=== PATIENT | male | born 1955 | race Asian ===

== ENCOUNTER 2016-08-12 22:47 | Emergency (ER) | payer OTHER ==
[~2016-08-12] VITALS: Ht 185.4 cm; Wt 95.3 kg
[2016-08-12 23:27] VITALS: BP 163/92; TEMP 98.7
== END 2016-08-12 23:34 | disposition home or self-care (01) ==
LOC: ED 22:47
DX: L03.012 Cellulitis of left finger (principal); W26.0XXA Contact with knife, initial encounter; Y92.098 Other place in other non-institutional residence as the place of occurrence of the external cause
CPT/HCPCS: 96372; 99282; J0696

== ENCOUNTER 2016-08-28 10:22 | Outpatient (CLI) | payer OTHER | END 2016-08-28 11:30 | disposition home or self-care (01) | LOC: RAD 10:22 | DX: L03.012 Cellulitis of left finger (principal) ==

== ENCOUNTER 2016-09-03 16:30 | Inpatient (IN) | payer OTHER ==
[~2016-09-03] VITALS: Ht 190.5 cm; Wt 82.6 kg
[2016-09-03 18:21] VITALS: BP 180/96; TEMP 98.1; Ht 190.5 cm; Wt 82.6 kg
[2016-09-03 19:32] LABS: PLATELET COUNT 312 K/uL (142-355)
[2016-09-03 19:40] LABS: POTASSIUM 3.7 mmol/L (3.6-5.2); SODIUM 136 mmol/L (136-145)
[2016-09-03 20:00] VITALS: BP 175/99; TEMP 98.1
[2016-09-04] VITALS (8 sets, daily range): BP systolic 119–172; BP diastolic 78–108; TEMP 97.6–98.4
[2016-09-04 05:20] LABS: PLATELET COUNT 256 K/uL (142-355)
[2016-09-04 05:37] LABS: POTASSIUM 3.1 mmol/L (3.6-5.2); SODIUM 132 mmol/L (136-145)
[2016-09-05] VITALS (11 sets, daily range): BP systolic 122–180; BP diastolic 75–112; TEMP 97.6–98.4
[2016-09-05 05:14] LABS: PLATELET COUNT 237 K/uL (142-355)
[2016-09-05 05:32] LABS: POTASSIUM 3.7 mmol/L (3.6-5.2); SODIUM 133 mmol/L (136-145)
[2016-09-06] VITALS: BP 180/102; TEMP 98.1
[2016-09-06 04:00] VITALS: BP 156/90; TEMP 98.6
[2016-09-06 05:50] LABS: PLATELET COUNT 245 K/uL (142-355)
[2016-09-06 06:32] LABS: POTASSIUM 3.1 mmol/L (3.6-5.2); SODIUM 133 mmol/L (136-145)
[2016-09-06 08:00] VITALS: BP 138/94; TEMP 98.3
[2016-09-06 12:00] VITALS: BP 157/92; TEMP 98.5
[2016-09-06 16:00] VITALS: BP 137/83; TEMP 97.8
[2016-09-06 20:00] VITALS: BP 196/108; TEMP 97.8
[2016-09-07] VITALS: BP 133/87; TEMP 98.3
[2016-09-07 04:00] VITALS: BP 127/82; TEMP 98.3
[2016-09-07 07:39] LABS: PLATELET COUNT 212 K/uL (142-355)
[2016-09-07 08:00] VITALS: BP 156/91; TEMP 98.3
[2016-09-07 08:41] LABS: POTASSIUM 3.4 mmol/L (3.6-5.2); SODIUM 135 mmol/L (136-145)
[2016-09-07 12:00] VITALS: BP 191/106; TEMP 98.2
[2016-09-07 16:00] VITALS: BP 180/95; TEMP 98.3
[2016-09-07 20:00] VITALS: BP 159/96; TEMP 98.2
[2016-09-08] VITALS (7 sets, daily range): BP systolic 124–173; BP diastolic 80–98; TEMP 97.7–98.8
[2016-09-08 06:41] LABS: PLATELET COUNT 212 K/uL (142-355)
[2016-09-08 06:50] LABS: POTASSIUM 3.6 mmol/L (3.6-5.2); SODIUM 138 mmol/L (136-145)
[2016-09-09 04:00] VITALS: BP 126/78; TEMP 98
[2016-09-09 07:14] LABS: PLATELET COUNT 220 K/uL (142-355)
[2016-09-09 07:19] LABS: POTASSIUM 3.5 mmol/L (3.6-5.2); SODIUM 135 mmol/L (136-145)
[2016-09-09 08:02] VITALS: BP 133/91; TEMP 98.2
[2016-09-09 12:05] VITALS: BP 162/95; TEMP 98.4
== END 2016-09-09 12:53 | disposition home or self-care (01) | DRG 988 ==
LOC: MED/SURG 16:30
PROVIDERS: Internal Medicine; ADMIT Student in an Organized Health Care Education/Training Program
PROC: 0X6R0Z1 Detachment at Left Middle Finger, High, Open Approach (ICD-10-PCS; principal; 2016-09-05)
DX: E11.69 Type 2 diabetes mellitus with other specified complication (principal); M86.142 Other acute osteomyelitis, left hand; L03.012 Cellulitis of left finger; I10 Essential (primary) hypertension; E87.6 Hypokalemia; E83.42 Hypomagnesemia
CPT/HCPCS: 36415; 80048; 80053; 80202; 81000; 82948; 83036; 83735; 85027; 85651; 86141; 87040; 96372; A9576; J0360; J1170; J1644; J1885; J2001; J2250; J2270; J2550; J2704; J3370; J3480; J3490

== ENCOUNTER 2018-02-24 05:46 | Outpatient (CLI) | payer OTHER ==
[2018-02-25] MEDS ORDERED: AMLODIPINE BESYLATE PO (19:33)
[2018-02-25] MEDS ORDERED: METF500T PO (19:34)
[2018-02-25] MEDS ORDERED: HYDROCODONE BIT1 TA1 PO (19:42)
== END 2018-02-24 06:10 | disposition short-term general hospital (02) ==
LOC: AMB 05:46
DX: E11.65 Type 2 diabetes mellitus with hyperglycemia (principal)
CPT/HCPCS: A0425; A0427

== ENCOUNTER 2018-02-24 06:16 | Inpatient (IN) | payer OTHER ==
[2018-02-24] VITALS (25 sets, daily range): BP systolic 78–120; BP diastolic 46–81; TEMP 97.8–99.8; Ht 188 cm; Wt 79.5 kg
[~2018-02-24] VITALS: Ht 188 cm; Wt 79.5 kg
[2018-02-24 07:32] LABS: POTASSIUM 3.9 mmol/L (3.6-5.2); SODIUM 132 mmol/L (136-145)
[2018-02-24 07:59] LABS: PLATELET COUNT 193 K/uL (142-355)
[2018-02-25] VITALS (24 sets, daily range): BP systolic 94–137; BP diastolic 71–108; TEMP 98.4–101.8
[2018-02-25 08:01] LABS: PLATELET COUNT 190 K/uL (142-355)
[2018-02-25] MEDS ORDERED: AMLODIPINE BESYLATE PO (19:33)
[2018-02-25] MEDS ORDERED: METF500T PO (19:34)
[2018-02-25] MEDS ORDERED: HYDROCODONE BIT1 TA1 PO (19:42)
[2018-02-26] VITALS (8 sets, daily range): BP systolic 118–159; BP diastolic 70–109
[2018-02-26 05:28] LABS: PLATELET COUNT 169 K/uL (142-355)
== END 2018-02-26 08:20 | disposition short-term general hospital (02) | DRG 871 ==
LOC: ED 06:16 → ICU 13:07
PROVIDERS: Emergency Medicine; Internal Medicine
DX: A41.89 Other specified sepsis (principal); J18.8 Other pneumonia, unspecified organism; E11.10 Type 2 diabetes mellitus with ketoacidosis without coma; R07.89 Other chest pain; E88.09 Other disorders of plasma-protein metabolism, not elsewhere classified; E87.70 Fluid overload, unspecified; I10 Essential (primary) hypertension; R09.02 Hypoxemia; I95.89 Other hypotension
CPT/HCPCS: 36600; 74022; 80053; 81000; 81002; 82010; 82550; 82805; 83605; 83735; 84484; 85007; 85027; 85379; 87040; 87070; 87077; 87205; 87502; 93005; 94640; 94664; 94760; 96365; 96374; 96375; 99285; J0456; J1650; J1815; J1885; J1940; J2020; J2060; J2405; J2543; J2550; J3475; J3480; J3490; P9047; Q9963

== ENCOUNTER 2018-02-26 08:33 | Outpatient (CLI) | payer OTHER ==
[~2018-02-26 08:33] MED LIST: AMLODIPINE BESYLATE PO; HYDROCODONE BIT1 TA1 PO; METF500T PO
== END 2018-02-26 09:31 | disposition short-term general hospital (02) ==
LOC: AMB 08:33
DX: A41.89 Other specified sepsis (principal); J18.9 Pneumonia, unspecified organism; E11.10 Type 2 diabetes mellitus with ketoacidosis without coma; R07.89 Other chest pain; E88.09 Other disorders of plasma-protein metabolism, not elsewhere classified; E87.70 Fluid overload, unspecified; I10 Essential (primary) hypertension; R09.02 Hypoxemia; I95.89 Other hypotension
CPT/HCPCS: A0425; A0427

== ENCOUNTER 2018-08-17 09:22 | Outpatient (CLI) | payer OTHER | END 2018-08-17 19:31 | disposition home or self-care (01) | LOC: RAD 09:22 | DX: J18.8 Other pneumonia, unspecified organism (principal); J98.4 Other disorders of lung; I10 Essential (primary) hypertension; E11.9 Type 2 diabetes mellitus without complications; R20.2 Paresthesia of skin ==

== ENCOUNTER 2019-12-27 12:05 | Outpatient (CLI) | payer OTHER ==
[2019-12-27 12:44] LABS: POTASSIUM 3.7 mmol/L (3.6-5.2)
[2019-12-27 12:48] LABS: PLATELET COUNT 357 K/uL (142-355)
== END 2019-12-27 19:14 | disposition home or self-care (01) ==
LOC: LABW 12:05
PROVIDERS: Nurse Practitioner Adult Health
DX: I20.8 Other forms of angina pectoris (principal)
CPT/HCPCS: 36415; 80053; 85027

== ENCOUNTER 2020-01-03 10:30 | Outpatient (CLI) | payer OTHER ==
[2020-01-03 11:16] LABS: POTASSIUM 3.7 mmol/L (3.6-5.2)
== END 2020-01-03 20:28 | disposition home or self-care (01) ==
LOC: LABW 10:30
PROVIDERS: Nurse Practitioner Adult Health
DX: E11.9 Type 2 diabetes mellitus without complications (principal)
CPT/HCPCS: 36415; 80048

== ENCOUNTER 2020-06-26 15:02 | Inpatient (IN) | payer OTHER ==
[~2020-06-26] VITALS: Ht 185.4 cm; Wt 82.1 kg
--- NOTE | 2020-06-26 15:00 | NUR ---
PT ADMITTED VIA STRETCHER TO RM 1106 FROM [facility] FOR CAD S/P CABG X2 ON 06/18/20, NAD NOTED, PT HOLDING STERNAL PILLOW TO CHEST DURING TRANSFER, NAD NOTED, PT HAS CLOTHING IN BAG ALONG WITH PHONE AND WALLET, PT ORIENTED TO ROOM AND CALL LIGHT, REINFORCED TEACHING TO PT TO NOT PUSH, PULL, OR LIFT ARMS OVER HEAD PER DR'S ORDERS, PT STATES HE HAS CHEST PAIN AT SURGICAL SITE AT A 6 ON A 0-10 PAIN SCALE, I WILL ADMINISTER PAIN MEDICATION AND REASSES, NO FURTHER NEEDS AT THIS TIME, PLACED CALL LIGHT WITHIN REACH, WILL CONTINUE TO MONITOR
[2020-06-26 16:21] VITALS: BP 126/84; TEMP 98.3; Ht 185.4 cm; Wt 82.1 kg
--- NOTE | 2020-06-26 19:43 | NUR ---
PT IS S/P CABG ON 06/18/20, MIDLINE SCAR TO CHEST NOTED INTACT WITH DERMABOND OVER SITE NO DRAINAGE OR REDNESS NOTED SITE MEASURES 19CM, PT HAS SURGICAL WOUND TO UPPER ABDOMEN FROM TUBE REMOVAL MEASURING 1 1/2 CM WOUND EDGES ARE SLIGHTY SEPERATED WITH PINK TISSUE NOTED INSIDE WOUND BED, RT LOWER LEG SURGICAL WOUND DRY AND INTACT WITH DERMABOND NO REDNESS OR DRAINAGE NOTED MEASURING 3CM FROM RT LEG VEIN GRAPH
--- NOTE | 2020-06-27 06:53 | NUR ---
Patient was admitted from [facility]- CAD S/P CABG x 2 and is poorly controlled, no diet order, History of DM II, HTN, Hyperlipidemia, CP at surgical site, surgical wound, 6 is pain level, cellulitis of left middle finger, DM II with hyperglycemia, HTN, Hypokalemia, Hyperlipidemia, ate 100% of 1 meal dinner meal per nursing charting;Hgb and Hct depressed, platelet count elevated , glucophage, metformin, norvasc and RD reviewed all labs and medications, glucose 287 elevated, HGBA1C at 12.4 and is highly elevated, lactic acid 2.5 elevated, pain and weakness, CAD, Diabetic neuropathy,weight loss over the last 3 months, removal of the left middle finger. 6'1" at 194.5 lbs. and BMI at 25.6 and is overweight and IBW = 184+/-10% (166 to 202 lbs.) and kcal needs for IBW x 25 = 2100, x 30 = 2500, x 35 = 2900, x 40 = 3300 kcal/day, protein needs x 1. to 1.5 = 109 to 125 grams per day and fluids for weight = x 25 to 40 - 2100 to 3300 ml per day but with MD's call on the fluids. Per [facility] 2000 to 2200 kcal,day, pro-85 to 102, fluids at 2100 to 2600 ml/cc per day. Decreased and poor appetite with weight loss per chart. Per the charting from the referral had a significant or 5% weight loss the week prior to hospitalization and reported decreasing 12 lbs. in 1 week, last weight from [facility] [place] was 198 lbs. on June 22 and now at 186 lbs. and is stable. Also reported a decrease in appetite with the weight loss; Humalog, and RD reviewed all medications and labs. Patient was admitted to the Swing Bed Program and I talked with Giselle about the patient yesterday and kelli faxed over information from [facility] [place] and I reviewed. FIFI Recommendations: 1-Please add diet order suggest Cardiac 2200 Calorie High Fiber or NCS Cardiac High FIber and if will not follow 2-Have to sign a dietary refusal form- A1C at 12.4 and is poorly controlled 3-Monitor Labs 4-PT to work with patient 5-OT to work with Patient 6-Pain Management 7-Add Vitamin C 500 gm BID 8-Add ZNSO4 220 mg per day and d/cn 14 days 9-Add Beneprotein BID 10-Add a MVI daily 11-Add A Diabetic Supplement is eating <75% of meals; Glucerna 1.5 and go ahead and give if patient will drink d/t weight loss 12-Add an appetite stimulant if eating <75% of meals 13-Increase foods high in Fe/Iron 14-Make sure hydrated 15-[place] all food preferences and state or diet card and offer substitutes with all meals.
[2020-06-27 08:00] VITALS: BP 125/81; TEMP 98.4
[2020-06-27 20:14] VITALS: BP 122/83; TEMP 98.4
--- NOTE | 2020-06-27 21:42 | NUR ---
PT LYING IN BED, ALERT, ORIENTED. STATED HE WAS HAVING SOME PAIN AT INCISION SITE. PT USED INCENTIVE SPIROMETER AND DID 10 BREATHS. PT PULLED 1250. PERCOCET GIVEN AT 2120 AND DULCOLAX 10MG GIVEN FOR CONSTIPATION. PT'S ABD DISTENDED AND FIRM. NO DISTRESS NOTED.
--- NOTE | 2020-06-28 01:20 | NUR ---
PT AWAKE REQUESTING SOMETHING FOR PAIN AT INCISION SITE. TRAMADOL 50MG GIVEN PO. PT'S PAIN LEVEL IS A 7 ON PAIN SCALE.
--- NOTE | 2020-06-28 04:59 | NUR ---
PT AWAKE REQUESTING WASHCLOTHES AND TOWELS TO GIVE SELF BATH AT SINK. LINENS TAKEN TO ROOM. INSTRUCTED PT TO CALL WHEN HE GETS UP.
--- NOTE | 2020-06-28 07:50 | NUR ---
PT CO PAIN 9 TO INCISION ON CHEST. PRN PAIN MEDS ADMIN ON REQUEST. LIMITED ASSIST PROVIDED TO HELP PATIENT TRANSFER FROM BED TO RECLINER, PROVIDING ONLY ENOUGH ASSIST TO RAISE THE BED AND TO HOLD PT'S PANTS UP WHILE HE TRANSFERRED. PT TOLERATED ACTIVITY WELL. INCISION TO CHEST C/D WITH NO REDNESS, WARMTH, DRAINAGE NOTED. INCISION BELOW MIDLINE NOTED TO BE C/D AND FREE FROM REDNESS, WARMTH AND DRAINAGE. INCISION TO RLE C/D AND FREE FROM REDNESS, WARMTH AND DRAINAGE.
[2020-06-28 08:00] VITALS: BP 122/79; TEMP 98.1
--- NOTE | 2020-06-28 08:00 | NUR ---
PT C/O NOT HAVING A BM IN A COUPLE OF DAYS- PT GIVEN MIRALAX AND PRUNE JUICE.
--- NOTE | 2020-06-28 13:46 | NUR ---
PRN PAIN MEDICATIONS ADMIN FOR 7/10 MIDLINE INCISION PAIN.
--- NOTE | 2020-06-28 16:34 | NUR ---
I spoke with pt in his room today about his discharge plans and he stated he will return home to live with his sister, Maeve Yao. He asked that i call her to make sure he has what he needs on discharge. He phoned her on his cell phone [phone] and put her on speaker phone. She asked if he may need a hospital bed or a lift chair on discharge. She also stated she has [facility] for her personal care services and stated she used to work for [employer] and stated that if he needs these services on discharge to please choose one of these providers, i told pt and her that i would discuss his needs further with his physician and therapists, they both verbalized understanding.
--- NOTE | 2020-06-28 16:44 | NUR ---
Upon patient' arrival to this center on 06/26/2020, per primary nursing staff patient required extensive 2 person staff assistance with transfer into bed as well as extensive 2 person staff assistance to lift him higher in the bed with a draw sheet. Patient underwent coronary artery bypass grafting x 2 on 06/18/2020 for coronary arter disease, see op note for details. Patient is under strict sternal precautions for 6 weeks, and is not to lift more than 10 pounds for 6 weeks per his cardiothoracic surgeon, and no driving for 4 weeks. Patient reported that he does not drive at this time as he does not own a vehicle. He stated 2 of his 6 children will take him wherever he needs to go. Patient reported exertional shortness of breath with activity when asked. Per record review, patient was noted to have a signficant 5% weight loss in a month prior to being admitted to [facility] on 06/14/2020. His labs reflected a HgbA1C of 11.6 prior to his CABG and instructions were given for him to follow with a primary care physician for tighter glycemic control. Nutritional information was provided to RD for consult. Additional diagnoses include, but are not limited to: HTN, hyperlipidemia, thoracic spondylosis, cholelithiasis, amputation of portion of left middle finger after a catfish finned him with non-resolving infection per interview, and a history of a coronary artery stent placement. When asked, patient reported that he liked to read so local newspaper was provided for his enjoyment. Opportunity for questions and education related to fall risk provided. Encouraged patient to call for assistance before attempting to perform transfers or toileting independently. Patient already provided a urinal for his convenience. When asked, patient verbalized that he utilizes his incentive spirometer 10 times every hour while awake per instruction from staff at [facility]. Patient reported that his prior level of function was independent in all ADLs and that he used a walking "stick". He lives with a disabled sister and provides assistance to her. He reported that he lost his 4 years ago to stomach cancer, currently .
--- NOTE | 2020-06-28 17:18 | NUR ---
Patient frequenty talking on his cell phone with family and friends during the day. Verbalized enjoying watching television as well, "I watch it all". Direct care staff report that he does require extensive assistance in bed mobility at this time due to his sternal precautions. Observed to clutch the red heart pillow provided by [facility] to his chest and staff provide weight bearing support when sitting up or lying down. "That pillow is a life-saver."
[2020-06-28 20:00] VITALS: BP 122/72; TEMP 97.8
--- NOTE | 2020-06-28 21:59 | NUR ---
1930: PT AWAKE DENIES DISCOMFORT AT THIS TIME.PT HOLDING HEART PILLOW TO CHEST. INCISION WITHIN NORMAL LIMITS, NO SWELLING,OR REDNESS AT SITE.
--- NOTE | 2020-06-29 00:02 | NUR ---
PT EQUESTED PAIN MED FOR LEVEL 7 PAIN ON PAIN SCALE. PERCOCET 2 TABS GIVEN PO. PT STATED THE PAIN IS AT THE SURGICAL SITE IN CHEST.
--- NOTE | 2020-06-29 02:15 | NUR ---
0100: PT HAS NO FURTHER COMPLAINTS OF PAIN. RESTING QUIETLY.
--- NOTE | 2020-06-29 04:09 | NUR ---
PT RESTING QUIETLY. NO DISTRESS NOTED.
[2020-06-29 08:00] VITALS: BP 134/88; TEMP 98
--- NOTE | 2020-06-29 08:16 | NUR ---
PT IN LF POSITION. HOLDING PILLOW OVER INCISION. NAD NOTED. PT C/O PAIN AT A 6 ON 0-10 PAIN SCALE. PRN PAIN MEDS ADMINISTERED. BED LOW AND LOCKED. CALL LIGHT WITHIN REACH
--- NOTE | 2020-06-29 13:45 | NUR ---
PT COMPLAINING OF PAIN AT A ON 0-10 PAIN SCALE. PRN PAIN MEDS GIVEN. PT HAS NO OTHER COMPLAINTS OR REQUESTS AT THIS TIME. BED LOW AND LOCKED. CALL LIGHT WITHIN REACH
--- NOTE | 2020-06-29 16:12 | NUR ---
PHYSICAL THERAPY IN WITH PT AT THIS TIME
[2020-06-29 20:00] VITALS: BP 109/72; TEMP 98.4
--- NOTE | 2020-06-29 20:00 | NUR ---
ENTERED PATIENT'S ROOM AT THIS TIME. PATIENT LYING IN BED WATCHING TV. RESPIRATIONS EVEN AND UNLABORED. SHIFT ASSESSMENT PERFORMED. PATIENT STATES HE DID HAVE A BM TODAY X 2. ENCOURAGED PATIENT TO DRINK PLENTY OF FLUIDS TO HELP PREVENT ANY CONSTIPATION. SURGICAL INCISIONS TO MID-CHEST, RT THIGH AND RT LOWER LEG ARE C/D/I. NO ERYTHEMA OR DRAINAGE NOTED. PATIENT DOES REPORT PAIN TO INCISION AT MID-CHEST. PM MEDICATIONS GIVEN ALONG WITH 2 TABS OF PERCOCET 5/325MG. ENCOURAGED PATIENT TO CONTINUE USE OF IS- ABLE TO PULL APPROX. 750 AT THIS TIME. NAD NOTED. BED LOCKED AND IN LOWEST POSITION. CALL LIGHT WITHIN EASY REACH.
--- NOTE | 2020-06-30 02:25 | NUR ---
PATIENT CALLED REQUESTING SOMETHING FOR PAIN. TRAMADOL 50MG GIVEN PO.
--- NOTE | 2020-06-30 05:00 | NUR ---
PATIENT CALLED AND STATES HE NEEDS HIS GABAPENTIN. BOTH FEET ARE "BURNING." HE ALSO STATES THAT HIS CHEST CONTINUES TO HURT OVER HIS INCISION SITE. I OFFERED PERCOCET 5/325MG, WHICH HE TOOK. BED LOCKED AND IN LOWEST POSITION. CALL LIGHT WITHIN EASY REACH.
--- NOTE | 2020-06-30 06:10 | NUR ---
IN PATIENT'S ROOM AT THIS TIME. PATIENT STATES HIS PAIN HAS IMPROVED. DENIES ANY OTHER CONCERNS OR COMPLAINTS AT THIS TIME. BED LOCKED AND IN LOWEST POSITION. CALL LIGHT WITHIN EASY REACH.
[2020-06-30 08:00] VITALS: BP 11/64; TEMP 98.2
--- NOTE | 2020-06-30 08:04 | NUR ---
PT RESTING IN LF POSITION. NAD NOTED. PT STATED THAT HE WANTED TO TAKE A SHOWER TODAY. INFORMED PT THAT HE WOULD BE ABLE TO GET ONE LATER TODAY BUT HE WAS TO PAT THE INCISION DRY. PT STATES THAT HE WAS ABLE TO HAVE 2 BOWEL MOVEMENTS YESTERDAY AND HE FELT A LOT BETTER TODAY. PT STATES THAT HIS PAIN WAS BAD THIS MORNING BUT THAT IT HAS CALMED DOWN NOW AND HE DOESN'T NEED ANY PAIN MEDS AT THIS TIME. BED LOW AND LOCKED. CALL LIGHT WITHIN REACH.
--- NOTE | 2020-06-30 09:30 | NUR ---
PHYSICAL THERAPY WALKING PT DOWN MCLAIN
--- NOTE | 2020-06-30 11:58 | NUR ---
PT C/O PAIN AT A 6 ON 0-10 PAIN SCALE. PRN PAIN MEDS GIVEN. BED LOW AND LOCKED. CALL LIGHT WITHIN REACH
--- NOTE | 2020-06-30 12:29 | NUR ---
PT C/O SHARP PAINS ON RIGHT SIDE OF CHEST. STATES THAT IT LASTS FOR A SPLIT SECOND. WILL INFORM MD. NO OTHER COMPLAINTS OR REQUESTS AT THIS TIME.
--- NOTE | 2020-06-30 14:45 | NUR ---
PT RESTING IN BED. HAS VISITORS AT THIS TIME. NAD NOTED. PT HAS NO COMPLAINTS OR REQUESTS AT THIS TIME. BED LOW AND LOCKED. CALL LIGHT WITHIN REACH.
--- NOTE | 2020-06-30 14:55 | NUR ---
Still no diet order on the chart but per Swing Bed Visit patient is pleased with meals, no food allergens and no dislikes and stated the food is really good and no complains, stressed to try and eat 90 to 100% of meals and also went on HGBA1C and stressing the increase of fresh fruits, vegetables and whole grains. Answered all questions and patient pleased with all meals, and all food preferences are honored and he stated he likes all foods no dislikes stated.
--- NOTE | 2020-06-30 18:10 | NUR ---
PT LAYING IN BED WATCHING TV. NAD NOTED. PT DENIES ANY PAIN AT THIS MOMENT. ENCOURAGED PT TO CALL IF NEEDING ANYTHING. NO OTHER COMPLAINTS OR REQUESTS AT THIS TIME. BED LOW AND LOCKED. CALL LIGHT WITHIN REACH.
[2020-06-30 20:00] VITALS: BP 111/74; TEMP 98.3
--- NOTE | 2020-06-30 20:10 | NUR ---
ENTERED PATIENT'S ROOM AT THIS TIME. PATIENT RESTING QUIETLY WITH EYES CLOSED. RESPIRATIONS EVEN AND UNLABORED. HE DENIES ANY PAIN AT THIS TIME. SURGICAL INCISIONS ARE C/D/I. ABDOMEN IS A LITTLE DISTENDED. LBM WAS YESTERDAY. NO OTHER CONCERNS OR COMPLAINTS VOICED AT THIS TIME. BED LOCKED AND IN LOWEST POSITION. CALL LIGHT WITHIN EASY REACH.
--- NOTE | 2020-06-30 21:00 | NUR ---
PATIENT CALLED. HE STATES THAT HIS TOLIET IS NO LONGER FLUSHING. MOVED PATIENT INTO RM 1110 UNTIL MAINTENANCE IS ABLE TO FIX IT. PATIENT WISHED TO AMBULATE DOWN THE MCLAIN. NO ASSISTANCE REQUIRED. PATIENT HAD A SLOW, BUT STEADY GAIT. ALL OF PATIENT'S BELONGINGS WERE MOVED INTO THE NEW ROOM. PATIENT INTRODUCED TO SURROUNDINGS AND CALL LIGHT. BED LOCKED AND IN LOWEST POSITION. CALL LIGHT WITHIN REACH. NO OTHER CONCERNS OR COMPLAINTS VOICED AT THIS TIME.
--- NOTE | 2020-07-01 02:30 | NUR ---
PATIENT CALLED REQUESTING SOMETHING FOR PAIN AND A SNACK. PERCOCET 5/325MG 2 TABS GIVEN AT THIS TIME. PATIENT RESTING QUIETLY IN BED. RESPIRATIONS EVEN AND UNLABORED. BED LOCKED AND IN LOWEST POSITION. CALL LIGHT WITHIN EASY REACH.
--- NOTE | 2020-07-01 06:15 | NUR ---
PATIENT RESTING QUIETLY IN BED WITH EYES CLOSED. RESPIRATIONS EVEN AND UNLABORED. NAD NOTED. BED LOCKED AND IN LOWEST POSITION. CALL LIGHT WITHIN EASY REACH.
--- NOTE | 2020-07-01 07:50 | NUR ---
IN PT RM TO ADMINISTER PAIN MEDICATION, PT STATES HE HAS PAIN IN HIS CHEST AT SURGICAL SITE, HE RATES HIS PAIN AT A 6 ON A 0-10 SCALE, NAD NOTED, PT LYING IN LF, NONLABORED BREATHING, NO FURTHER NEEDS AT THIS TIME, WILL REEVALUATE PAIN, CALL LIGHT IS WITHIN REACH
[2020-07-01 08:00] VITALS: BP 116/74; TEMP 98.5
--- NOTE | 2020-07-01 10:00 | NUR ---
PT AMBULATED TO BATHROOM WITH NO ASSIST OR SUPERVISION NEEDED, NAD NOTED, NO NEEDS AT THIS TIME
--- NOTE | 2020-07-01 11:41 | NUR ---
PT REQUESTING PAIN MEDICATION, PT RATES HIS PAIN AT A 7 ON A 0-10 PAIN SCALE, HE STATES HE HAS A ACHING PAIN IN HIS CHEST AT SITE OF SURGERY, WILL REASSES PAIN, DR. CALDWELL MADE AWARE OF PT'S COMPLAINTS OF PAIN, NO ORDERS GIVEN AT THIS TIME, WILL CONTINUE TO MONITOR
--- NOTE | 2020-07-01 13:22 | NUR ---
PT STATES HE FEELS BETTER AT THIS TIME, HIS PAIN IS NOW A 2 ON A 0-10 PAIN SCALE, PT ALL 75% OF HIS LUNCH WITHOUT ASSITANCE, PT HAS NO NEEDS AT THIS TIME, WILL CONTINUE TO MONITOR, CALL LIGHT WITHIN REACH
--- NOTE | 2020-07-01 19:30 | NUR ---
ENTERED PATIENT'S ROOM AT THIS TIME. PATIENT RESTING QUIETLY IN BED WATCHING TV. RESPIRATIONS EVEN AND UNLABORED. DENIES PAIN AT THIS TIME. SHIFT ASSESSMENT PERFORMED. NO OTHER CONCERNS OR COMPLAINTS VOICED. BED LOCKED AND AT LOWEST POSITION. CALL LIGHT WITHIN REACH.
[2020-07-01 20:00] VITALS: BP 111/69; TEMP 98.3
--- NOTE | 2020-07-02 02:45 | NUR ---
PATIENT RESTING QUIETLY IN BED WITH EYES CLOSED. NAD NOTED. CALL LIGHT WITHIN EASY REACH.
--- NOTE | 2020-07-02 06:36 | NUR ---
PATIENT RESTING QUIETLY IN BED WITH EYES CLOSED. RESPIRATIONS EVEN AND UNLABORED. NAD NOTED. CALL LIGHT WITHIN EASY REACH.
[2020-07-02 08:00] VITALS: BP 122/84; TEMP 98.2
--- NOTE | 2020-07-02 08:00 | NUR ---
PATIENT SLEEPING IN BED. RESPIRATIONS EQUAL AND NONLABORED. NAD NOTED. CALL LIGHT WITHIN REACH. 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 PATIENT REQUESTED NEUROTIN AT THIS TIME.
--- NOTE | 2020-07-02 10:45 | NUR ---
PATIENT IN SHOWER. NAD NOTED. PATIENT TOLERATING WELL. WILL CONTINUE TO MONITOR.
--- NOTE | 2020-07-02 18:47 | NUR ---
PATIENT REQUESTING PAIN MEDICATION. STATING PAIN IS A 6 OUT OF 10 TO INCISION AT CHEST. NAD NOTED. PRN TRAMADOL GIVEN PER MD ORDERS.
--- NOTE | 2020-07-02 19:58 | NUR ---
PT AWAKE ALERT, DENIES PAIN AT THIS TIME. SURGICAL SITE TO CHEST INTACT. NO REDNESS OR SWELLING AT SITE.
[2020-07-02 20:08] VITALS: BP 116/76; TEMP 98.3
--- NOTE | 2020-07-03 00:14 | NUR ---
07/03/20 0000: PT AWAKE DENIES PAIN AT THIS TIME. PT STATED "I'M FEELING PRETTY GOOD".
--- NOTE | 2020-07-03 04:56 | NUR ---
07/03/20 0411: PT REQUESTED PAIN PILL FOR LEVEL 7 PAIN. TRAMADOL 50MG GIVEN PO.
[2020-07-03 08:00] VITALS: BP 127/88; TEMP 98.6
[2020-07-03 19:58] VITALS: BP 107/71; TEMP 98.3
--- NOTE | 2020-07-03 21:23 | NUR ---
2115: PT REQUESTED SOMETHING FOR PAIN. LEVEL 5 ON PAIN SCALE. TRAMADOL 50MG PO GIVEN.
--- NOTE | 2020-07-04 00:02 | NUR ---
07/04/20 0010: PT REQUESTING SNACK. NO VOICED COMPLAINTS OF DISCOMFORT. PT WATCHING TV.
--- NOTE | 2020-07-04 03:03 | NUR ---
PT RESTING WELL. NO DISTRESS NOTED. RESPIRATIONS EVEN AND UNLABORDED.
--- NOTE | 2020-07-04 06:40 | NUR ---
0622: PT REQUESTING PAIN PILL FOR LEVEL 6 PAIN AT SURGICAL SITE. TRAMADOL 50MG GIVEN PO.
[2020-07-04 08:00] VITALS: BP 117/77; TEMP 98.7
--- NOTE | 2020-07-04 09:25 | NUR ---
PT AMBULATING IN HALLWAY WITH [place] FROM PT BY HIS SIDE, PT AMBULATING WITHOUT ASSISTANCE, PT AMBULATED FROM ROOM TO NURSES STATION DOORS, BACK DOWN TO [place] DOORS, AND BACK TO , NAD NOTED, NONLABORED BREATHING, PT STATES HE DOES NOT HAVE PAIN AT THIS TIME, WILL CONTINUE TO MONITOR
--- NOTE | 2020-07-04 12:50 | NUR ---
PT AMBULATING DOWN HALLWAY TOWARDS NURSING STATION WITH OT BY HIS SIDE, CONTACT GUARD ONLY, NAD NOTED
--- NOTE | 2020-07-04 20:00 | NUR ---
ENTERED PATIENT'S ROOM. PATIENT RESTING QUIETLY IN BED WATCHING TV. STATES HIS PAIN IS IMPROVING, AND HE IS DOING BETTER. NO CONCERNS OR COMPLAINTS VOICED. RESPIRATIONS EVEN AND UNLABORED. BED LOCKED AND IN LOWEST POSITION. CALL LIGHT WITHIN EASY REACH.
[2020-07-04 20:02] VITALS: BP 106/71; TEMP 98.3
--- NOTE | 2020-07-05 00:55 | NUR ---
PATIENT REQUESTING SOMETHING FOR PAIN. TRAMADOL 50MG WAS GIVEN AT 2132, BUT PATIENT STATES HE NEEDS SOMETHING MORE FOR PAIN. POINTS TO LEFT CHEST WALL PRIMARY SOURCE OF PAIN. PERCOCET 5/325MG 1 TAB GIVEN AT THIS TIME. NO OTHER CONCERNS VOICED AT THIS TIME. CALL LIGHT WITHIN EASY REACH.
--- NOTE | 2020-07-05 06:25 | NUR ---
PATIENT RESTING QUIETLY IN BED WITH EYES CLOSED. RESPIRATIONS EVEN AND UNLABORED. NAD NOTED. CALL LIGHT WITHIN REACH.
--- NOTE | 2020-07-05 07:54 | NUR ---
PT REQUEST PAIN MEDICATION AT THIS TIME DUE TO CHEST PAIN AT SURGICAL SITE, PT RATES HIS PAIN AT A 7 ON A 0-10 PAIN SCALE, PT STATES HE IS NOT HAVING ANY DIFFICULTY BREATHING OR SOB JUST PAIN AT SITE, NAD NOTED, NONLABORED BREATHING, NO FURTHER NEEDS AT THIS TIME, WILL CONTINUE TO MONITOR, CALL LIGHT WITHIN REACH
[2020-07-05 08:00] VITALS: BP 112/72; TEMP 98.2
--- NOTE | 2020-07-05 09:25 | NUR ---
IN PT RM FOR MORNING MEDICATIONS AND ASSESSMENT, PT IS WALKING AROUND IN THE RM AFTER TAKING A SHOWER WIHTOUT ASSISTANCE OR SUPERVISION, PT STATES HE DIDNOT HAVE SOB OR DIZZYNESS WHILE SHOWERING, PT DRESSED SELF WITHOUT HELP, PT STATES HE IS NOT IN PAIN CURRENTLY AFTER THE PAIN MEDICATION, PT HAS NO NEEDS AT THIS TIME, WILL CONTINUE TO MONITOR
--- NOTE | 2020-07-05 15:23 | NUR ---
PT STATES HIS PAIN IS EASING OFF, HE STATES HIS PAIN LEVEL IS AT A 5 ON A 0-10 PAIN SCALE AFTER ADMINISTRATION OF PAIN MEDICATION, I INFORMED PATIENT IF HE NEEDS ANY FURTHER MEDICATION FOR PAIN TO LET ME KNOW, PT VERBALZIED UNDERSTANDING, PT LYING IN LF, NAD NOTED, NONLABORED BREATHING, WILL CONTINUE TO MONITOR CALL LIGHT WITHIN REACH
--- NOTE | 2020-07-05 19:40 | NUR ---
ENTERED PATIENT'S ROOM. PATIENT RESTING QUIETLY IN BED. NAD NOTED. DENIES ANY PAIN AT THIS TIME. RESPIRATIONS EVEN AND UNLABORED. SHIFT ASSESSMENT PERFORMED. BED LOCKED AND IN LOWEST POSITION. CALL LIGHT WITHIN REACH.
[2020-07-05 20:00] VITALS: BP 119/79; TEMP 98.2
--- NOTE | 2020-07-06 02:40 | NUR ---
PATIENT CALLED REQUESTING SOMETHING FOR PAIN. TRAMADOL 50MG GIVEN. BED LOCKED AND IN LOWEST POSITION. CALL LIGHT WITHIN REACH.
--- NOTE | 2020-07-06 06:17 | NUR ---
PATIENT RESTING QUIETLY IN BED WATCHING TV. NO CONCERNS OR COMPLAINTS VOICED. BED LOCKED AND IN LOWEST POSITION. CALL LIGHT WITHIN EASY REACH.
[2020-07-06 08:00] VITALS: BP 133/82; TEMP 98.2
--- NOTE | 2020-07-06 14:28 | NUR ---
per Shaniqua Jaramillo, PT, skylar completed home eval today and she stated pt still has problems with posture, forward flexion, is at risk for falls and had some tachycardia and SOB. 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 they stated for her dr leigh he would have to lift her wheelchair into the car to take along to appts. He walked to mailbox but had SOB and still has some balance issues and unsteady gait. They did eval his shower but when stepping in he would have to pull to get in shower/tub area. He has a shower bench but will need a toilet seat cashier receptionist, and a hand held shower wand. Truck Driver Rubbish Collector will report above to Dr. Hart. They will also recommend in home services for nursing and therapy when he does discharge home.
[2020-07-06 20:09] VITALS: BP 109/90; TEMP 98.4
--- NOTE | 2020-07-06 20:55 | NUR ---
UPON ENTERING PATIENT'S ROOM, PATIENT WAS AMBULATING WITHOUT DIFFICULTY IN THE ROOM AND ON PERSONAL CELL PHONE. PT ENDED HIS CALL. PM ASSESSMENT COMPLETED THIS TIME AND PM MEDICATIONS GIVEN WHOLE WITH GLUCERNA X1 CARTON WITHOUT DIFFICULTY. PATIENT C/O OF PAIN TO MID STERNUM AREA, PAIN SCALE OF 6/10 ON NUMERIC PAIN SCALE. PATIENT DENIES ANY SHORTNESS OF BREATH, GAIT IS NOTED TO BE STEADY AND SLOW. PT DENIES ANY NEEDS OR C/O AT THIS TIME, CALL LIGHT AND BEDSIDE TABLE WITH PERSONAL BELONGINGS WITHIN REACH. PATIENT ENCOURAGED TO CALL FOR ANY ASSISTANCE OR NEEDS, PATIENT V/O UNDERSTANDING. FOOT BOARD ON PATIENT'S BED REMOVED TO PROVIDE ADDITIONAL LENGTH FOR PATIENT. PATIENT WAS DELIGHTED AND EXPRESSED HIS APPRECIATION FOR REMOVAL OF SAME. ENCOURAGED PATIENT TO REPORT TO STAFF ANY ADDITIONAL COMFORT MEASURES NEEDED DURING HIS ADMISSION. PATIENT V/O UNDERSTANDING. PATIENT DENIES ANY NEEDS OR C/O, CALL LIGHT WITHIN REACH AND BEDSIDE TABLE WITH PERSONAL BELONGINGS WITHIN REACH. CARYN
--- NOTE | 2020-07-06 23:05 | NUR ---
PT IN LOW FOWLERS POSITION WITH EYES CLOSED. NAD NOTED WITH PATIENT AT THIS TIME.
--- NOTE | 2020-07-07 01:00 | NUR ---
PT C/O OF MIDSTERNAL CHEST PAIN, 7/10 ON NUMERIC PAIN SCALE. TRAMADOL 50MG X1 TAB PO GIVEN. PATIENT TOLERATED WELL.
--- NOTE | 2020-07-07 02:29 | NUR ---
PATIENT WAS ASSESED FOR PAIN. PATIENT DENIES ANY PAIN AND IS RESTING COMFORTABLY
[2020-07-07 08:00] VITALS: BP 134/90; TEMP 98.4
--- NOTE | 2020-07-07 13:03 | NUR ---
Patient continues to be pleased with meals but has had some weight loss and suggested Glucerna BID if patient will take, is already receiving a MVI and continue with RD's past recommendations and RD available as needed.
[2020-07-07 20:00] VITALS: BP 130/80; TEMP 98
--- NOTE | 2020-07-08 00:40 | NUR ---
PATIENT DENIES ANY PAIN AND IS UP EATING A SNACK
--- NOTE | 2020-07-08 05:18 | NUR ---
PATIENT IS RESTING QUIETLY AND HIS BREATHING IS REGULAR NON LABORED
--- NOTE | 2020-07-08 07:30 | NUR ---
ENTERED PT'S ROOM FOR MORNING ASSESSMENT, PT IS RESTING IN LF WITH HIS EYES CLOSED AND LIGHTS OUT. PT STATES THAT HE HAS SOME PAIN IN THE STERNAL AREA THAT IS MORE LIKE A SORENESS. HEART SOUNDS ARE PRESENT AND AT NORMAL SINUS RHYTHM. THE RT LUNG SOUNDS CLEAR AT THE TOP AND CRACKLES AT THE NEAR THE BOTTOM. THE LT LUNG IS DIMINISHED. PT DEMONSTRATED ON THE INCENTIVE SPIROMETER THAT HE CAN GET IT TO 1500. PULSES ARE STRONG IN THE UPPER EXTRMITIES BUT WEAK IN THE LOWER EXTREMITIES. CAPILLARY REFILL IS >3 SEC IN THE LOWER EXTREMITIES. PT IS SHOWING NO SIGNS OF DISTRESS AT THIS TIME. PT DENIES PAIN OR ANY NEEDS AT THIS TIME.
[2020-07-08 08:00] VITALS: BP 124/84; TEMP 98
--- NOTE | 2020-07-08 10:55 | NUR ---
PT STATED THAT HE NEEDED A PAIN PILL. PRN DOSE OF PERCOCET WAS GIVEN. PT SWALLOWED MEDICINE WITH NO DIFFICULTY. WILL CONTINUE TO MONITOR.
--- NOTE | 2020-07-08 11:00 | NUR ---
PT TOOK A SHOWER AND DRESSED WITH NO ASSISTANCE. PT CURRENTLY BACK IN THE BED RESTING. NAD IS NOTED AT THIS TIME.
[2020-07-08 20:17] VITALS: BP 118/74; TEMP 98.1
--- NOTE | 2020-07-08 23:22 | NUR ---
PATIENT IS IN LF WATCHING TV. THE PATIENT DENIES ANY PAIN OR CONCERNS. ALL 4 EXTREMITIES HAVE REGULAR PULSES. ALL INCISION SITES ARE CLEAN DRY AND INTACT.
--- NOTE | 2020-07-08 23:24 | NUR ---
LATE ENTRY 1900: PATIENTS FAMILY IS FINISHING UP A VISIT AT BEDSIDE
--- NOTE | 2020-07-09 01:27 | NUR ---
PATIENT DENIES ANY PAIN, AND STATES HE HAS BEEN RESTING WELL
--- NOTE | 2020-07-09 05:21 | NUR ---
PATIENT IS ALERT AND ORIENTED. HIS SURICAL WOUNDS ARE CLEAN DRY AND INTACT, NO DRAINAGE NOTED. PATIENT IS UP AT [place] AND HAS COMPLAINED OF NO PAIN TONIGHT. PATIENT EXPRESSES A READINESS TO GO HOME.
[2020-07-09 08:00] VITALS: BP 124/81; TEMP 98.9
[2020-07-09 20:00] VITALS: BP 133/81; TEMP 98.2
--- NOTE | 2020-07-09 21:00 | NUR ---
ENTERED PATIENT'S ROOM AT THIS TIME. PATIENT RESTING QUIETLY IN BED WATCHING TV. RESPIRATIONS EVEN AND UNLABORED. SHIFT ASSESSMENT PERFORMED. ENCOURAGED CONTINUED USE OF INCENTIVE SPIROMETER. PATIENT REPORTS MILD-MODERATE PAIN AT RIGHT CHEST WALL. PERCOCET GIVEN WITH PM MEDS. GLUCERNA GIVEN ALSO. BED LOCKED AND IN LOWEST POSITION. CALL LIGHT WITHIN EASY REACH.
[2020-07-10 07:53] VITALS: BP 126/78; TEMP 98.5
[2020-07-10 20:00] VITALS: BP 126/85; TEMP 98
--- NOTE | 2020-07-10 20:15 | NUR ---
ENTERED PATIENT'S ROOM. PATIENT LYING IN BED WATCHING TV. RESPIRATIONS EVEN AND UNLABORED. NAD NOTED. REPORTS MILD PAIN TO CHEST WALL. NO OTHER CONCERNS OR COMPLAINTS VOICED. PERCOCET GIVEN WITH PM MEDICATIONS. BED LOCKED AND IN LOWEST POSITION. CALL LIGHT WITHIN EASY REACH.
--- NOTE | 2020-07-11 02:10 | NUR ---
PATIENT CALLED REQUESTING SOMETHING FOR PAIN. TRAMADOL 50MG GIVEN AT THIS TIME. NAD NOTED. CALL LIGHT WITHIN EASY REACH.
[2020-07-11 08:00] VITALS: BP 128/83; TEMP 97.8
--- NOTE | 2020-07-11 08:06 | NUR ---
2U REGULAR INSULIN ADMIN SQ TO ABD OTBS [id number].
--- NOTE | 2020-07-11 08:30 | NUR ---
PT UP TO BESIDE FOR BREAKFAST, IS A/O X3, DENIES SOB, IS ACTIVE WITH THERAPY AND WANTING TO GO HOME. PT RATES PAIN TO LEFT OF MIDSTERNAL INCISION A 6/10 AND IS GIVEN PRN PAIN MED. PT ABLE TO AMBULATE IN ROOM PER SELF, AND AMBULATES HALLWAYS WITH PT. PT PROVIDING ADLS PER SELF AND SHOWERS PER SELF WITH PT STANDING BY. LUNG SOUNDS CTA, BOWEL SOUNDS ACTIVE X4. PT IN NAD AT THIS TIME. NON-SKID SOCKS IN PLACE, CALL LIGHT IN EASY REACH, BED LOW, LOCKED, SR UP X2 FOR SAFETY.
--- NOTE | 2020-07-11 08:42 | NUR ---
PERCOCET ADMIN AT PT REQUEST FOR C/O 6 CHEST WALL PAIN.
--- NOTE | 2020-07-11 10:00 | NUR ---
PT VERBALIZES LESS PAIN AT THIS TIME. -07/21
--- NOTE | 2020-07-11 10:25 | NUR ---
PRN TRAMADOL ADMIN AT PT REQUEST FOR C/O PAIN 5/10 L CHEST WALL PAIN.
--- NOTE | 2020-07-11 11:37 | NUR ---
8U REGULAR INSULIN ADMIN FOR OTBS [id number].
--- NOTE | 2020-07-11 15:55 | NUR ---
PERCOCET ADMIN AT PT REQUEST FOR 6/10 L CHEST WALL PAIN.
--- NOTE | 2020-07-11 17:00 | NUR ---
PT STATES PAIN IS LESS AT THIS TIME- 07/21
[2020-07-11 20:12] VITALS: BP 116/73; TEMP 98.1
--- NOTE | 2020-07-12 01:35 | NUR ---
PATIENT IS RESTING QUIETLY. HIS BREATHING IS NON LABORED AND REGULAR
--- NOTE | 2020-07-12 03:35 | NUR ---
PATIENT RECIEVED MEDICATION FOR PAIN, AND NOW REPORTS RELIEF
[2020-07-12 08:00] VITALS: BP 135/89; TEMP 98
--- NOTE | 2020-07-12 08:19 | NUR ---
PT UP IN RECLINER, A/O X3, RATES L CHEST WALL PAIN AT 5 WITH ACTIVITY, DRAIN SITE TO UPPER ABD OPEN TO AIR, NO REDNESS, DRAINAGE, WARMTH OR ODOR NOTED. AREA CLEANED WITH NS, PATTED DRY, NEOSPORIN APPLIED AND LEFT OPEN TO AIR. PRN TRAMADOL ADMIN FOR PAIN. PT TOLERATES BREAKFAST, FEEDS SELF. EDUCATION PROVIDED ON ADMINISTRATION OF INSULIN, RETURN DEMONSTRATION DONE. PT STATES LAST BM SEVERAL DAYS AGO AND WAS GIVEN PRN DULCOLAX AND MIRALAX. CALL LIGHT IN EASY REACH, PT TOLERATING ADLS PER SELF AND SHOWERS WITH SUPERVISION WELL.
--- NOTE | 2020-07-12 11:36 | NUR ---
PT RATES PAIN 5/10 L CHEST WALL- PERCOCET ADMIN RX. PT UP IN RECLINER TALKING ON CELL PHONE, IN NAD.
--- NOTE | 2020-07-12 16:03 | NUR ---
PT C/O L CHEST WALL PAIN 06/20- TRAMADOL ADMIN RX. PT STATES HE SHOWERED PER SELF WITH NO ASSIST, TOLERATED ACTIVITY WELL.
--- NOTE | 2020-07-12 17:58 | NUR ---
PT RATES L CHEST WALL PAIN 08/20- PERCOCET ADMIN FOR PAIN. PT UP TO BEDSIDE EATING DINNER- APPROX 50% EATEN PER SELF. NAD NOTED AT THIS TIME.
[2020-07-12 20:18] VITALS: BP 125/80; TEMP 98.5
--- NOTE | 2020-07-12 22:51 | NUR ---
2200: PATIENT NOW REPORTS NO PAIN AFTER MEDICATION.
--- NOTE | 2020-07-13 00:26 | NUR ---
PATIENT IS RESTING QUIETLY, BREATHING IS EVEN AND NON LABORED
--- NOTE | 2020-07-13 05:37 | NUR ---
PATIENT IS UP AND AT [place] AND DENIES PAIN
[2020-07-13 08:00] VITALS: BP 144/81; TEMP 98.1
[2020-07-13] MEDS ORDERED: BLOOMIS59 PO ×11 (08:19→08:31)
--- NOTE | 2020-07-13 11:00 | NUR ---
HUMBLE, RN, SWING BED COORDINATOR AT PT'S BEDSIDE. SHIVA ÁLVAREZ, PHD AT PT'S BEDSIDE. PT DENIES ANY C/O OR NEEDS AT THIS TIME. PT REPORTS THAT HE HAS EVERYTHING HE NEEDS AT HOME. PT'S SON AT BEDSIDE. PT'S MEDS FILLED BY [facility], PT HAS MEDS IN HIS BAG PRIOR TO DISCHARGE. PT GIVEN DISCHARGE INSTRUCTIONS AT THIS TIME WITH ALL F/U APPTS. PT DISCHARGED VIA W/C AT THIS TIME ACCOMPANIED BY HIS SON AND SARA PRUITT.
--- NOTE | 2020-07-13 11:21 | NUR ---
pt discharging today with referral for home health nursing and physical therapy at home with [facility] ph [phone]/ fx [phone]. he has fu with Dr. Mendez 07/25 @ 11am in [place] ph [phone] and pcp France Burroughs NP on 07/25 @ 3:15pm ph [phone]. he also has fu with surgeon Dr. Foss 08/01 @ 11:50am in [place] ph [phone].
== END 2020-07-13 16:47 | disposition home or self-care (01) | DRG 948 ==
LOC: MED/SURG 15:02
PROVIDERS: ADMIT Internal Medicine Endocrinology, Diabetes & Metabolism; ATTEND Internal Medicine Endocrinology, Diabetes & Metabolism
DX: R53.1 Weakness (principal); R62.7 Adult failure to thrive; I25.10 Atherosclerotic heart disease of native coronary artery without angina pectoris; I10 Essential (primary) hypertension; E78.49 Other hyperlipidemia; Z95.1 Presence of aortocoronary bypass graft; E11.9 Type 2 diabetes mellitus without complications; Z68.25 Body mass index [BMI] 25.0-25.9, adult
CPT/HCPCS: 87081; 94760; J1815

== ENCOUNTER 2020-07-18 08:11 | Outpatient (CLI) | payer OTHER ==
[~2020-07-18 08:11] MED LIST changes: +BLOOMIS59 PO
== END 2020-07-18 20:03 | disposition home or self-care (01) ==
LOC: INF 08:11
PROVIDERS: ATTEND Internal Medicine
DX: Z23 Encounter for immunization (principal)
CPT/HCPCS: 96372

== ENCOUNTER 2020-08-09 08:22 | Outpatient (CLI) | payer OTHER | END 2020-08-09 19:21 | disposition home or self-care (01) | LOC: INF 08:22 | PROVIDERS: ATTEND Internal Medicine | DX: Z23 Encounter for immunization (principal) | CPT/HCPCS: 96372 ==

== ENCOUNTER 2020-10-23 08:49 | Outpatient (CLI) | payer OTHER | END 2020-10-23 21:51 | disposition home or self-care (01) | LOC: RESP 08:49 | PROVIDERS: ATTEND Specialist | DX: I25.118 Atherosclerotic heart disease of native coronary artery with other forms of angina pectoris (principal); I10 Essential (primary) hypertension; R00.2 Palpitations | CPT/HCPCS: 93225 ==

== ENCOUNTER 2021-05-07 21:40 | Emergency (ER) | payer OTHER ==
[~2021-05-07] VITALS: Ht 185.4 cm; Wt 86.2 kg
[2021-05-07 22:12] LABS: PLATELET COUNT 318 K/uL (142-355)
[2021-05-07 22:20] LABS: POTASSIUM 3.3 mmol/L (3.6-5.2)
[2021-05-07 22:35] LABS: PARTIAL THROMBOPLASTIN TIME 25.3 SECONDS (24.5-33.6)
[2021-05-08 03:19] VITALS: BP 134/95; TEMP 98.6
== END 2021-05-08 03:20 | disposition home or self-care (01) ==
LOC: ED 21:40
PROVIDERS: Emergency Medicine
DX: I16.0 Hypertensive urgency (principal); R07.89 Other chest pain
CPT/HCPCS: 36415; 80053; 82550; 83880; 84484; 85027; 85379; 85610; 85730; 93005; 96374; 96375; 99284; J2270; J3490; Q9963

== ENCOUNTER 2021-11-16 19:49 | Emergency (ER) | payer OTHER ==
[~2021-11-16] VITALS: Ht 185.4 cm; Wt 86.2 kg
[2021-11-16 20:41] LABS: PLATELET COUNT 246 K/uL (142-355)
[2021-11-16 20:46] LABS: POTASSIUM 3.7 mmol/L (3.6-5.2)
[2021-11-16 22:35] VITALS: BP 108/76; TEMP 98.7
== END 2021-11-16 22:35 | disposition home or self-care (01) ==
LOC: ED 19:49
PROVIDERS: Emergency Medicine
DX: U07.1 COVID-19 (principal); Z11.52 Encounter for screening for COVID-19; R06.02 Shortness of breath
CPT/HCPCS: 36415; 80053; 82805; 83605; 83880; 84484; 85027; 87040; 87635; 93005; 96372; 99283; J0696; U0003